=== PATIENT | male | born 1990 | race Caucasian/White ===

== ENCOUNTER 2021-11-07 13:56 | Emergency (ER) | payer OTHER, SELFPAY ==
[2021-11-07] MEDS ORDERED: Ketorolac Tromethamine 30 MG/ML VIAL ONE (14:40)
[2021-11-07] MEDS ORDERED: diphenhydrAMINE 50 MG/ML VIAL ONE (14:41)
[2021-11-07] MEDS ORDERED: Metoclopramide HCl 10 MG/2 ML VIAL ONE (14:43)
[2021-11-07] MEDS ORDERED: tiZANidine HCl 4 MG TAB PO SCH (16:15)
[2021-11-07] MEDS ORDERED: Lidocaine 5% Patch TD SCH (17:00)
[2021-11-08] MEDS ORDERED: Transdermal Patch Removal TOP SCH (05:00)
== END 2021-11-07 18:22 | disposition home or self-care (01) ==
LOC: ERS 13:56
DX: R51.9 Headache, unspecified (principal); F17.210 Nicotine dependence, cigarettes, uncomplicated
CPT/HCPCS: 94760; 96374; 96375; J1200; J1885; J2765

== ENCOUNTER 2023-04-05 14:17 | Emergency (ER) | payer SELFPAY ==
[2023-04-05] MEDS ORDERED: Ketorolac Tromethamine 30 MG (1 mL) VIAL ONE (16:24)
[2023-04-05] MEDS ORDERED: predniSONE 20 MG TAB ONE (16:25)
[2023-04-05] MEDS ORDERED: Fioricet 325/50/40 mg Tablet ONE (16:30)
[2023-04-05 17:22] LABS: SARS-CoV-2 NAA Rapid Test Not Detected (NotDetected)
== END 2023-04-05 17:43 | disposition home or self-care (01) ==
LOC: ERS 14:17
DX: R51.9 Headache, unspecified (principal); F17.210 Nicotine dependence, cigarettes, uncomplicated; Z55.6 Problems related to health literacy
CPT/HCPCS: 96372; 99284; J1885; J7512

== ENCOUNTER 2023-05-02 19:32 | Emergency (ER) | payer SELFPAY ==
[2023-05-02] MEDS ORDERED: Ketorolac Tromethamine 30 MG (1 mL) VIAL ONE (20:22)
[2023-05-02] MEDS ORDERED: diphenhydrAMINE 50 MG/ML VIAL ONE (20:23)
[2023-05-02] MEDS ORDERED: Ondansetron PF 4 MG/2 ML Vial ONE (20:23)
== END 2023-05-02 22:22 | disposition home or self-care (01) ==
LOC: ERS 19:32
DX: R51.9 Headache, unspecified (principal); F17.210 Nicotine dependence, cigarettes, uncomplicated
CPT/HCPCS: 70450; 96374; 96375; J1200; J1885; J2405